=== PATIENT | female | born 1945 | race Two or more races ===

== ENCOUNTER 2021-11-22 12:54 | Inpatient (IN) | payer BC, OTHER ==
[~2021-11-22] VITALS: Ht 157.5 cm; Wt 75.4 kg
[2021-11-22 13:45] LABS: Urine WBC None Seen /hpf (0 - 5)
[2021-11-22 13:52] LABS: Basophils # (auto) 0 10 ^3/uL (0-0.2); Basophils % (auto) 0.4 % (0.0-2.0); Eosinophils # (auto) 0 10 ^3/uL (0-0.8); Eosinophils % (auto) 0.2 % (0.0-7.0); Hematocrit 43.6 % (36.0-46.0); Hemoglobin 14.7 g/dL (12.2-16.2); Lymphocytes # (auto) 0.9 10 ^3/uL (0.4-5.4); Lymphocytes % (auto) 9.8 % (10.0-50.0); Mean Corpuscular Hemoglobin 28.8 pg (28.0-32.0); Mean Corpuscular Hgb Conc. 33.6 g/dL (32.0-36.0); Mean Corpuscular Volume 85.8 fL (80.0-100.0); Monocytes # (auto) 0.8 10 ^3/uL (0-1.3); Monocytes % (auto) 8.8 % (0.0-12.0); Neutrophils # (auto) 7.4 10 ^3/uL (1.6-8.6); Neutrophils % (auto) 80.8 % (37.0-80.0); Nucleated Red Blood Cells % 0.3 %; Red Blood Cells 5.08 10^6/uL (4.0-5.20); Red Cell Distribution Width 15.3 % (11.8-14.3); White Blood Cell 9.1 10^3/uL (4.4-10.8)
[2021-11-22 14:01] LABS: Urine Bacteria FEW /hpf (None Seen); Urine Blood 2+ /uL (Negative); Urine Hyaline Cast FEW /lpf (0 - 2); Urine Mucus FEW (None Seen); Urine Specific Gravity 1.011 (1.001-1.035)
[2021-11-22 14:10] LABS: Albumin 3.8 g/dL (3.4-5.0); Calcium 9.1 mg/dL (8.5-10.1); Magnesium 2.5 mg/dL (1.6-2.6); Potassium 4.3 mmol/L (3.5-5.1)
[2021-11-22 14:15] LABS: BUN/Creatinine Ratio 11.8; Bilirubin, Total 1.4 mg/dL (0.2-1.0); Total Protein 6.8 g/dL (6.4-8.2)
[2021-11-22] MEDS ORDERED: FUROSEMIDE 20 MG TAB PO ONE (14:30)
[2021-11-22] MEDS ORDERED: IOHEXOL 350 MG/ML 100ML IJ ONE (15:02)
[2021-11-22] MEDS ORDERED: MORPHINE SULFATE INJECTION 2 MG/ML SYRG IV PRN ×2 (15:30→17:00)
[2021-11-22] MEDS ORDERED: NITROGLYCERIN 0.4 MG SL TAB SL PRN (15:30)
[2021-11-22] MEDS ORDERED: BUMETANIDE 2.5mg/10ml (0.25 mg/ml) INJ IV ONE (15:30)
[2021-11-22] MEDS ORDERED: LORazepam 0.5 MG TAB PO PRN (17:00)
[2021-11-22] MEDS ORDERED: FAMOTIDINE (10MG/ML) 2ML VL IV ONE (17:00)
[2021-11-22] MEDS ORDERED: IPRATROPIUM BROM 0.5 MG/2.5ML INH SOL NEB ONE (17:00)
[2021-11-22] MEDS ORDERED: LACTULOSE 20Gm/30ML SOLN PO PRN (17:00)
[2021-11-22] MEDS ORDERED: hydrALAZINE HCL 20 MG/ML VL IV PRN (17:00)
[2021-11-22] MEDS ORDERED: ONDANSETRON HCL 4 MG/2 ML VIAL IV PRN (17:00)
[2021-11-22] MEDS ORDERED: HYDROcodone-ACET 5/325MG TAB PO ONE (17:00)
[2021-11-22] MEDS ORDERED: DOCUSATE SOD 100 MG CAP PO PRN (17:00)
[2021-11-22] MEDS ORDERED: METOPROLOL SUCCINATE XL 50 MG TAB PO ONE (17:00)
[2021-11-22] MEDS ORDERED: BENAZEPRIL HCL 10 MG TAB PO ONE (17:00)
[2021-11-22] MEDS ORDERED: HYDROcodone-ACET 5/325MG TAB PO PRN ×2 (17:00)
[2021-11-22 17:14] LABS: INR 1.14 (0.9-1.15); Partial Thromboplastin Time 25.7 sec (23.6-33.0)
[2021-11-22] MEDS ORDERED: LIDOCAINE 1% (LOCAL ANESTH.) PF 5ml SDV ID PRN (20:00)
[2021-11-22] MEDS ORDERED: IPRATROPIUM BROM 0.5 MG/2.5ML INH SOL NEB SCH (21:00)
[2021-11-22] MEDS: ATORVASTATIN 20 MG TAB PO SCH (22:02)
[2021-11-23] MEDS ORDERED: IPRATROPIUM BROM 0.5 MG/2.5ML INH SOL NEB PRN
[2021-11-23] MEDS: BUMETANIDE 2.5mg/10ml (0.25 mg/ml) INJ IV SCH ×3 (00:07→18:33)
[2021-11-23] MEDS: SODIUM CHLOR 0.9% PF (SALINE LOCK) 10ML VIAL/SYR IV SCH ×3 (00:08→21:36)
[2021-11-23 02:51] VITALS: BP 151/90
[2021-11-23 08:41] LABS: Alcohol, Urine < 3.0 mg/dL (0-10); Amphetamine Screen, Urine NEGATIVE (NEGATIVE); Barbiturate Scree,Urine NEGATIVE (NEGATIVE); Benzodiazephine Screen, Urine NEGATIVE (NEGATIVE); Cannabinoid Screen, Urine NEGATIVE (NEGATIVE); Cocaine Screen, Urine NEGATIVE (NEGATIVE); Opiate Scree,Urine NEGATIVE (NEGATIVE); Phencyclidine Screen, Urine NEGATIVE (NEGATIVE)
[2021-11-23 08:45] LABS: Basophils # (auto) 0.1 10 ^3/uL (0-0.2); Basophils % (auto) 0.7 % (0.0-2.0); Eosinophils # (auto) 0 10 ^3/uL (0-0.8); Eosinophils % (auto) 0.2 % (0.0-7.0); Hematocrit 42.4 % (36.0-46.0); Hemoglobin 14.2 g/dL (12.2-16.2); Lymphocytes # (auto) 0.7 10 ^3/uL (0.4-5.4); Lymphocytes % (auto) 8.9 % (10.0-50.0); Mean Corpuscular Hemoglobin 28.5 pg (28.0-32.0); Mean Corpuscular Hgb Conc. 33.4 g/dL (32.0-36.0); Mean Corpuscular Volume 85.5 fL (80.0-100.0); Monocytes # (auto) 0.7 10 ^3/uL (0-1.3); Monocytes % (auto) 9.1 % (0.0-12.0); Neutrophils # (auto) 6.1 10 ^3/uL (1.6-8.6); Neutrophils % (auto) 81.1 % (37.0-80.0); Red Blood Cells 4.96 10^6/uL (4.0-5.20); Red Cell Distribution Width 15.1 % (11.8-14.3); White Blood Cell 7.5 10^3/uL (4.4-10.8)
[2021-11-23 09:14] LABS: INR 1.24 (0.9-1.15); Partial Thromboplastin Time 28.8 sec (23.6-33.0)
[2021-11-23] MEDS ORDERED: FAMOTIDINE (10MG/ML) 2ML VL IV SCH (10:00)
[2021-11-23] MEDS ORDERED: BENAZEPRIL HCL 10 MG TAB PO SCH (10:00)
[2021-11-23] MEDS: METOPROLOL SUCCINATE XL 50 MG TAB PO SCH (10:06)
[2021-11-23] MEDS: ASPirin 81 mg TAB PO SCH (10:06)
[2021-11-23] MEDS: levoFLOXacin 500MG 100 ML IV SCH (10:06)
[2021-11-23] MEDS: ENOXAPARIN SOD 40 MG/0.4 ML SYRINGE SC SCH (10:07)
[2021-11-23 11:25] LABS: Albumin 3.5 g/dL (3.4-5.0); Bilirubin, Total 1.8 mg/dL (0.2-1.0); Phosphorus 3.6 mg/dL (2.5-4.90); Potassium 3.6 mmol/L (3.5-5.1); Total Protein 6.6 g/dL (6.4-8.2); Uric Acid 8.5 mg/dL (2.6-6.0)
[2021-11-23 17:00] VITALS: BP 141/77
[2021-11-23] MEDS: ATORVASTATIN 20 MG TAB PO SCH (21:36)
[2021-11-23] MEDS: POTASSIUM CHL 20 Meq TABLET PO SCH (21:36)
[2021-11-23 22:00] VITALS: BP 145/79
[2021-11-24 05:00] VITALS: BP 136/75
[2021-11-24 06:05] LABS: Potassium 3.8 mmol/L (3.5-5.1)
[2021-11-24 06:12] LABS: BUN/Creatinine Ratio 13.7; Calcium 8.7 mg/dL (8.5-10.1)
[2021-11-24] MEDS: BUMETANIDE 2.5mg/10ml (0.25 mg/ml) INJ IV SCH (06:19)
[2021-11-24 09:00] VITALS: BP 154/85
[2021-11-24] MEDS: levoFLOXacin 500MG 100 ML IV SCH (09:22)
[2021-11-24] MEDS: POTASSIUM CHL 20 Meq TABLET PO SCH ×2 (09:23→21:29)
[2021-11-24] MEDS: ASPirin 81 mg TAB PO SCH (09:24)
[2021-11-24] MEDS: ENOXAPARIN SOD 40 MG/0.4 ML SYRINGE SC SCH (09:32)
[2021-11-24] MEDS: SODIUM CHLOR 0.9% PF (SALINE LOCK) 10ML VIAL/SYR IV SCH ×2 (09:44→21:28)
[2021-11-24] MEDS: METOPROLOL SUCCINATE XL 50 MG TAB PO SCH (09:45)
[2021-11-24] MEDS ORDERED: SACU1TAB PO (12:54)
[2021-11-24] MEDS ORDERED: ATOR20TA50 PO (12:54)
[2021-11-24] MEDS ORDERED: ASPI1CHW15 PO (12:54)
[2021-11-24] MEDS ORDERED: POTA8TAB15 PO (12:54)
[2021-11-24] MEDS ORDERED: METO-6 PO (12:54)
[2021-11-24] MEDS ORDERED: BUME2TAB5 PO (12:54)
[2021-11-24 13:00] VITALS: BP 97/62
[2021-11-24 17:00] VITALS: BP 125/72
[2021-11-24] MEDS: BUMETANIDE 1mg/4ml VIAL (0.25mg/ml) IV SCH (18:34)
[2021-11-24] MEDS ORDERED: TEMAZEPAM 15 MG CAP PO ONE (21:15)
[2021-11-24] MEDS: ATORVASTATIN 20 MG TAB PO SCH (21:30)
[2021-11-24 22:00] VITALS: BP 129/88
[2021-11-25] VITALS (15 sets, daily range): BP systolic 110–138; BP diastolic 62–88
[2021-11-25] MEDS: BUMETANIDE 1mg/4ml VIAL (0.25mg/ml) IV SCH ×2 (05:30→18:53)
[2021-11-25 06:48] LABS: BUN/Creatinine Ratio 15.7; Calcium 8.8 mg/dL (8.5-10.1); Potassium 3.8 mmol/L (3.5-5.1)
[2021-11-25 06:51] LABS: INR 1.22 (0.9-1.15); Partial Thromboplastin Time 29.1 sec (23.6-33.0)
[2021-11-25] MEDS: ENOXAPARIN SOD 40 MG/0.4 ML SYRINGE SC SCH (10:00)
[2021-11-25] MEDS: POTASSIUM CHL 20 Meq TABLET PO SCH (10:25)
[2021-11-25] MEDS: SODIUM CHLOR 0.9% PF (SALINE LOCK) 10ML VIAL/SYR IV SCH (10:25)
[2021-11-25] MEDS: METOPROLOL SUCCINATE XL 50 MG TAB PO SCH (10:26)
[2021-11-25] MEDS: ASPirin 81 mg TAB PO SCH (10:33)
[2021-11-25] MEDS ORDERED: LIDOCAINE 2%HCL (LOCAL ANESTH.) INJ 20ML MDV ONE (12:09)
[2021-11-25] MEDS ORDERED: ANGIOMAX 250 MG VIAL IV ONE (12:49)
[2021-11-25] MEDS ORDERED: HEPARIN SODIUM (PORCINE) 5000 UNITS/ML 1ML VIAL ONE (12:50)
[2021-11-25] MEDS ORDERED: VERAPAMIL 2.5MG/ML INJ 2ML VIAL IV ONE (12:50)
[2021-11-25] MEDS ORDERED: fentaNYL CITRATE 100 MCG/2 ML VL ONE (12:50)
[2021-11-25] MEDS ORDERED: SODIUM CHL 0.9% 0 ML ONE (12:51)
[2021-11-25] MEDS ORDERED: MIDAZOLAM HCL 2MG/2ML 2ml VIAL (1mg/ml) ONE (12:51)
[2021-11-25] MEDS ORDERED: SACUBITRIL-VALSARTAN 24mg/26mg TAB PO SCH (22:00)
== END 2021-11-25 20:30 | disposition home health service (06) | DRG 286 ==
LOC: ER 12:54 → TELE 15:18 → TELE-WESTW 11-23 15:16
PROVIDERS: ADMIT Hospitalist; ATTEND Hospitalist
PROC: B211YZZ Fluoroscopy of Multiple Coronary Arteries using Other Contrast (ICD-10-PCS; principal; 2021-11-25)
DX: I13.0 Hypertensive heart and chronic kidney disease with heart failure and stage 1 through stage 4 chronic kidney disease, or unspecified chronic kidney disease (principal); I50.41 Acute combined systolic (congestive) and diastolic (congestive) heart failure; N39.0 Urinary tract infection, site not specified; I16.9 Hypertensive crisis, unspecified; J91.8 Pleural effusion in other conditions classified elsewhere; I42.8 Other cardiomyopathies; N18.9 Chronic kidney disease, unspecified; Z20.822 Contact with and (suspected) exposure to COVID-19; E66.01 Morbid (severe) obesity due to excess calories; E78.5 Hyperlipidemia, unspecified; I48.91 Unspecified atrial fibrillation; Z85.3 Personal history of malignant neoplasm of breast; Z90.13 Acquired absence of bilateral breasts and nipples; Z79.899 Other long term (current) drug therapy; Z88.0 Allergy status to penicillin; Z68.30 Body mass index [BMI] 30.0-30.9, adult
CPT/HCPCS: 36415; 36569; 71045; 71046; 71275; 80048; 80053; 80061; 80307; 81001; 82728; 83036; 83735; 83880; 84100; 84443; 84484; 84550; 85025; 85379; 85610; 85730; 87040; 87086; 87426; 93005; 93306; 93458; 93970; 96365; 96375; 97163; 99152; G0378; J1956; J2250; J3490

== ENCOUNTER 2022-01-17 20:01 | Inpatient (IN) | payer BC ==
[~2022-01-17] VITALS: Ht 165.1 cm; Wt 67.5 kg
[~2022-01-17 20:01] MED LIST: ASPI1CHW15 PO; ATOR20TA50 PO; BUME2TAB5 PO; METO-6 PO; POTA8TAB15 PO; SACU1TAB PO
[2022-01-17 21:00] LABS: Basophils # (auto) 0.1 10 ^3/uL (0-0.2); Basophils % (auto) 0.4 % (0.0-2.0); Eosinophils # (auto) 0 10 ^3/uL (0-0.8); Hematocrit 48.9 % (36.0-46.0); Hemoglobin 14.8 g/dL (12.2-16.2); Lymphocytes # (auto) 1.1 10 ^3/uL (0.4-5.4); Lymphocytes % (auto) 7.7 % (10.0-50.0); Mean Corpuscular Hemoglobin 28.1 pg (28.0-32.0); Mean Corpuscular Hgb Conc. 30.3 g/dL (32.0-36.0); Mean Corpuscular Volume 92.7 fL (80.0-100.0); Monocytes # (auto) 0.8 10 ^3/uL (0-1.3); Neutrophils # (auto) 12.1 10 ^3/uL (1.6-8.6); Neutrophils % (auto) 85.9 % (37.0-80.0); Red Blood Cells 5.27 10^6/uL (4.0-5.20); Red Cell Distribution Width 14.8 % (11.8-14.3); White Blood Cell 14.1 10^3/uL (4.4-10.8)
[2022-01-17 21:17] LABS: Albumin 3.5 g/dL (3.4-5.0); Calcium 9.7 mg/dL (8.5-10.1); Magnesium 3.4 mg/dL (1.6-2.6); Potassium 5.3 mmol/L (3.5-5.1)
[2022-01-17 21:34] LABS: BUN/Creatinine Ratio 16.3; Bilirubin, Total 0.8 mg/dL (0.2-1.0); Total Protein 7.6 g/dL (6.4-8.2)
[2022-01-17] MEDS ORDERED: DEXTROSE (50%) 50ML SYRG IV PRN (21:45)
[2022-01-17] MEDS ORDERED: InsuLIN R (HUMAN) 100 UNITS in SODIUM CHL 0.9% 99 ML IV SCH (21:45)
[2022-01-17] MEDS ORDERED: InsuLIN REG 1unit/0.01ml Soln (100units/ml) ONE (22:40)
[2022-01-17] MEDS: ACCU-CHEK COMFORT CURVE STRIP VI SCH (22:59)
[2022-01-17] MEDS ORDERED: ONDANSETRON HCL 4 MG/2 ML VIAL IV PRN (23:30)
[2022-01-17] MEDS ORDERED: DOCUSATE SOD 100 MG CAP PO PRN (23:30)
[2022-01-17] MEDS: SACUBITRIL-VALSARTAN 24mg/26mg TAB PO SCH (23:57)
[2022-01-17] MEDS: ATORVASTATIN 20 MG TAB PO SCH (23:58)
[2022-01-18] VITALS (68 sets, daily range): BP systolic 63–140; BP diastolic 25–90
[2022-01-18] MEDS ORDERED: SODIUM CHLORIDE 0.9% 1,000 ML IV ONE (00:30)
[2022-01-18] MEDS: ACCU-CHEK COMFORT CURVE STRIP VI SCH ×24 (00:34→23:40)
[2022-01-18] MEDS: BUMETANIDE 1 MG TAB PO SCH ×3 (00:40→21:29)
[2022-01-18 01:42] LABS: Urine Bacteria NONE SEEN /hpf (None Seen); Urine Blood Negative /uL (Negative); Urine Budding Yeast OCCASIONAL /hpf (None Seen); Urine Hyaline Cast MOD /lpf (0 - 2); Urine Mucus FEW (None Seen); Urine Specific Gravity 1.017 (1.001-1.035); Urine WBC 1 /hpf (0 - 5)
[2022-01-18 02:44] LABS: BUN/Creatinine Ratio 17.9; Calcium 9.8 mg/dL (8.5-10.1); Potassium 4.7 mmol/L (3.5-5.1)
[2022-01-18] MEDS ORDERED: SODIUM CHLORIDE 0.9% 500 ML IV ONE (03:15)
[2022-01-18] MEDS ORDERED: InsuLIN REG 1unit/0.01ml Soln (100units/ml) IV ONE (03:15)
[2022-01-18] MEDS ORDERED: SODIUM CHLORIDE 0.9% 1,000 ML IV SCH (03:45)
[2022-01-18] MEDS: InsuLIN R (HUMAN) 100 UNITS in SODIUM CHL 0.9% 99 ML IV SCH ×2 (07:00→19:20)
[2022-01-18] MEDS ORDERED: DEXTROSE (50%) 50ML SYRG IV PRN ×2 (07:15→20:00)
[2022-01-18] MEDS ORDERED: InsuLIN R (HUMAN) 100 UNITS in SODIUM CHL 0.9% 99 ML IV SCH (07:15)
[2022-01-18] MEDS ORDERED: ACCU-CHEK COMFORT CURVE STRIP VI SCH (07:30)
[2022-01-18 08:11] LABS: Calcium 9.4 mg/dL (8.5-10.1); Potassium 3.3 mmol/L (3.5-5.1)
[2022-01-18 08:14] LABS: BUN/Creatinine Ratio 18.4
[2022-01-18] MEDS ORDERED: NOREPINEPHRINE 8 MG/250ML KIT 250 ML IV ONE (08:56)
[2022-01-18] MEDS: NOREPINEPHRINE 8 MG/250ML KIT 250 ML IV SCH ×2 (09:00→22:24)
[2022-01-18] MEDS: SACUBITRIL-VALSARTAN 24mg/26mg TAB PO SCH (10:00)
[2022-01-18] MEDS: ASPirin-EC 81 mg tab PO SCH (10:00)
[2022-01-18] MEDS ORDERED: METOPROLOL SUCCINATE XL 50 MG TAB PO SCH (10:00)
[2022-01-18] MEDS: MEROPENEM 500MG IVPB 50 ML IV SCH ×2 (10:48→21:38)
[2022-01-18] MEDS ORDERED: PIPERACILLIN-TAZOB 2.25GM 50 ML IV SCH (12:00)
[2022-01-18] MEDS: POTASSIUM CHL 20MEQ/100ML 100 ML IV SCH ×2 (12:40→18:29)
[2022-01-18] MEDS: SOD CHL 0.45% 1,000 ML IV SCH ×2 (13:38→20:44)
[2022-01-18] MEDS ORDERED: MEROPENEM 1GM IVPB 100 ML IV SCH (14:00)
[2022-01-18] MEDS: D5W 5% 1,000 ML IV SCH ×2 (14:08→21:10)
[2022-01-18 15:30] LABS: Alcohol, Urine < 3.0 mg/dL (0-10); Amphetamine Screen, Urine NEGATIVE (NEGATIVE); Barbiturate Scree,Urine NEGATIVE (NEGATIVE); Benzodiazephine Screen, Urine NEGATIVE (NEGATIVE); Cannabinoid Screen, Urine NEGATIVE (NEGATIVE); Cocaine Screen, Urine NEGATIVE (NEGATIVE); Opiate Scree,Urine NEGATIVE (NEGATIVE); Phencyclidine Screen, Urine NEGATIVE (NEGATIVE)
[2022-01-18 17:03] LABS: BUN/Creatinine Ratio 18.9; Calcium 9.5 mg/dL (8.5-10.1); Potassium 3.6 mmol/L (3.5-5.1)
[2022-01-18 18:54] LABS: Calcium 8.9 mg/dL (8.5-10.1); Potassium 3.8 mmol/L (3.5-5.1)
[2022-01-18] MEDS ORDERED: INSULIN LANTUS (GLARGINE) 1 /0.01ml (100units/ml) SC ONE (20:00)
[2022-01-18] MEDS: InsuLIN REG 1unit/0.01ml Soln (100units/ml) SC SCH ×2 (20:00→23:41)
[2022-01-18] MEDS: ATORVASTATIN 20 MG TAB PO SCH (21:29)
[2022-01-18 22:13] LABS: BUN/Creatinine Ratio 18.4; Calcium 8.9 mg/dL (8.5-10.1); Potassium 3.5 mmol/L (3.5-5.1)
[2022-01-19] VITALS (31 sets, daily range): BP systolic 81–123; BP diastolic 44–76
[2022-01-19] MEDS: ACCU-CHEK COMFORT CURVE STRIP VI SCH ×5 (03:32→21:53)
[2022-01-19] MEDS: InsuLIN REG 1unit/0.01ml Soln (100units/ml) SC SCH ×5 (03:33→21:55)
[2022-01-19 03:50] LABS: Basophils # (auto) 0 10 ^3/uL (0-0.2); Basophils % (auto) 0.3 % (0.0-2.0); Eosinophils # (auto) 0 10 ^3/uL (0-0.8); Eosinophils % (auto) 0.1 % (0.0-7.0); Hematocrit 40.2 % (36.0-46.0); Hemoglobin 13.7 g/dL (12.2-16.2); Lymphocytes # (auto) 1.2 10 ^3/uL (0.4-5.4); Lymphocytes % (auto) 8.6 % (10.0-50.0); Mean Corpuscular Hemoglobin 27.5 pg (28.0-32.0); Mean Corpuscular Hgb Conc. 34.1 g/dL (32.0-36.0); Mean Corpuscular Volume 80.5 fL (80.0-100.0); Monocytes # (auto) 0.9 10 ^3/uL (0-1.3); Monocytes % (auto) 5.9 % (0.0-12.0); Neutrophils # (auto) 12.3 10 ^3/uL (1.6-8.6); Neutrophils % (auto) 85.1 % (37.0-80.0); Nucleated Red Blood Cells % 0.1 %; Red Cell Distribution Width 14.1 % (11.8-14.3); White Blood Cell 14.5 10^3/uL (4.4-10.8)
[2022-01-19 04:10] LABS: BUN/Creatinine Ratio 21.2; Calcium 8.8 mg/dL (8.5-10.1); Potassium 3.6 mmol/L (3.5-5.1)
[2022-01-19] MEDS: D5W 5% 1,000 ML IV SCH (05:53)
[2022-01-19 06:13] LABS: BUN/Creatinine Ratio 20.4; Calcium 8.8 mg/dL (8.5-10.1); Potassium 3.3 mmol/L (3.5-5.1)
[2022-01-19] MEDS: SOD CHL 0.45% 1,000 ML IV SCH ×2 (07:45→14:50)
[2022-01-19] MEDS: MEROPENEM 500MG IVPB 50 ML IV SCH ×2 (09:20→21:47)
[2022-01-19] MEDS: BUMETANIDE 1 MG TAB PO SCH (09:20)
[2022-01-19] MEDS: ASPirin-EC 81 mg tab PO SCH (09:20)
[2022-01-19] MEDS ORDERED: POTASSIUM CHL 20 Meq TABLET PO ONE (11:00)
[2022-01-19] MEDS ORDERED: ACETAMINOPHEN 325 MG TAB PO PRN (11:00)
[2022-01-19] MEDS ORDERED: POTASSIUM CHL 20MEQ/100ML 100 ML IV ONE (11:00)
[2022-01-19 15:16] LABS: BUN/Creatinine Ratio 20.5; Calcium 7.8 mg/dL (8.5-10.1); Potassium 4.1 mmol/L (3.5-5.1)
[2022-01-19] MEDS: ATORVASTATIN 20 MG TAB PO SCH (21:31)
[2022-01-19] MEDS: POTASSIUM CHL 20 Meq TABLET PO SCH (21:31)
[2022-01-19] MEDS: INSULIN LANTUS (GLARGINE) 1 /0.01ml (100units/ml) SC SCH (21:54)
[2022-01-20] VITALS (24 sets, daily range): BP systolic 87–127; BP diastolic 48–79
[2022-01-20] MEDS: SOD CHL 0.45% 1,000 ML IV SCH ×3 (02:04→23:45)
[2022-01-20 04:09] LABS: Basophils # (auto) 0 10 ^3/uL (0-0.2); Basophils % (auto) 0.3 % (0.0-2.0); Eosinophils # (auto) 0 10 ^3/uL (0-0.8); Eosinophils % (auto) 0.3 % (0.0-7.0); Hematocrit 36.6 % (36.0-46.0); Hemoglobin 12.6 g/dL (12.2-16.2); Lymphocytes # (auto) 1.1 10 ^3/uL (0.4-5.4); Lymphocytes % (auto) 12.8 % (10.0-50.0); Mean Corpuscular Hemoglobin 27.9 pg (28.0-32.0); Mean Corpuscular Hgb Conc. 34.5 g/dL (32.0-36.0); Mean Corpuscular Volume 80.9 fL (80.0-100.0); Monocytes # (auto) 0.6 10 ^3/uL (0-1.3); Neutrophils # (auto) 6.9 10 ^3/uL (1.6-8.6); Neutrophils % (auto) 79.6 % (37.0-80.0); Nucleated Red Blood Cells % 0.2 %; Red Blood Cells 4.53 10^6/uL (4.0-5.20); Red Cell Distribution Width 14.2 % (11.8-14.3); White Blood Cell 8.7 10^3/uL (4.4-10.8)
[2022-01-20 04:48] LABS: BUN/Creatinine Ratio 27.2; Calcium 8.4 mg/dL (8.5-10.1)
[2022-01-20] MEDS: InsuLIN REG 1unit/0.01ml Soln (100units/ml) SC SCH ×4 (06:33→22:00)
[2022-01-20] MEDS: ACCU-CHEK COMFORT CURVE STRIP VI SCH ×4 (06:33→22:00)
[2022-01-20] MEDS: NOREPINEPHRINE 8 MG/250ML KIT 250 ML IV SCH (09:00)
[2022-01-20] MEDS: POTASSIUM CHL 20 Meq TABLET PO SCH ×2 (10:16→22:26)
[2022-01-20] MEDS: ASPirin-EC 81 mg tab PO SCH (10:16)
[2022-01-20] MEDS: MEROPENEM 500MG IVPB 50 ML IV SCH ×2 (10:16→22:27)
[2022-01-20] MEDS: ATORVASTATIN 20 MG TAB PO SCH (22:26)
[2022-01-20] MEDS: INSULIN LANTUS (GLARGINE) 1 /0.01ml (100units/ml) SC SCH (22:28)
[2022-01-21] VITALS (17 sets, daily range): BP systolic 81–105; BP diastolic 45–65
[2022-01-21 04:34] LABS: Basophils # (auto) 0 10 ^3/uL (0-0.2); Basophils % (auto) 0.1 % (0.0-2.0); Eosinophils # (auto) 0 10 ^3/uL (0-0.8); Eosinophils % (auto) 0.3 % (0.0-7.0); Hematocrit 34.7 % (36.0-46.0); Hemoglobin 11.8 g/dL (12.2-16.2); Lymphocytes # (auto) 1.1 10 ^3/uL (0.4-5.4); Mean Corpuscular Hemoglobin 28.1 pg (28.0-32.0); Mean Corpuscular Hgb Conc. 33.9 g/dL (32.0-36.0); Mean Corpuscular Volume 82.8 fL (80.0-100.0); Monocytes # (auto) 0.5 10 ^3/uL (0-1.3); Monocytes % (auto) 6.6 % (0.0-12.0); Neutrophils # (auto) 5.8 10 ^3/uL (1.6-8.6); Nucleated Red Blood Cells % 0.1 %; Red Blood Cells 4.19 10^6/uL (4.0-5.20); Red Cell Distribution Width 14.3 % (11.8-14.3); White Blood Cell 7.4 10^3/uL (4.4-10.8)
[2022-01-21 04:43] LABS: Calcium 7.8 mg/dL (8.5-10.1); Potassium 4.1 mmol/L (3.5-5.1)
[2022-01-21 04:47] LABS: BUN/Creatinine Ratio 23.8
[2022-01-21] MEDS: InsuLIN REG 1unit/0.01ml Soln (100units/ml) SC SCH ×4 (06:57→22:38)
[2022-01-21] MEDS: ACCU-CHEK COMFORT CURVE STRIP VI SCH ×4 (06:58→22:00)
[2022-01-21] MEDS: MEROPENEM 500MG IVPB 50 ML IV SCH (09:31)
[2022-01-21] MEDS: POTASSIUM CHL 20 Meq TABLET PO SCH ×2 (09:31→22:37)
[2022-01-21] MEDS: ASPirin-EC 81 mg tab PO SCH (09:31)
[2022-01-21] MEDS: SOD CHL 0.45% 1,000 ML IV SCH (11:26)
[2022-01-21] MEDS: ATORVASTATIN 20 MG TAB PO SCH (22:37)
[2022-01-21] MEDS: INSULIN LANTUS (GLARGINE) 1 /0.01ml (100units/ml) SC SCH (22:38)
[2022-01-22] VITALS (25 sets, daily range): BP systolic 89–129; BP diastolic 52–84
[2022-01-22 04:29] LABS: BUN/Creatinine Ratio 18.6; Calcium 8.1 mg/dL (8.5-10.1)
[2022-01-22] MEDS: InsuLIN REG 1unit/0.01ml Soln (100units/ml) SC SCH ×3 (06:16→17:00)
[2022-01-22] MEDS: ACCU-CHEK COMFORT CURVE STRIP VI SCH ×3 (07:00→17:00)
[2022-01-22] MEDS: POTASSIUM CHL 20 Meq TABLET PO SCH (10:00)
[2022-01-22] MEDS: ASPirin-EC 81 mg tab PO SCH (10:00)
[2022-01-22] MEDS ORDERED: LIDOCAINE VISCOUS 2% 15ML UD ONE (12:26)
[2022-01-22] MEDS ORDERED: LIDOCAINE VISCOUS 2% 15ML UD MT ONE (12:30)
[2022-01-22] MEDS ORDERED: MIDAZOLAM HCL 2MG/2ML 2ml VIAL (1mg/ml) ONE (12:33)
[2022-01-22] MEDS ORDERED: fentaNYL CITRATE 100 MCG/2 ML VL ONE (12:33)
[2022-01-22] MEDS ORDERED: MIDAZOLAM HCL 2MG/2ML 2ml VIAL (1mg/ml) IV ONE (13:45)
[2022-01-22] MEDS ORDERED: fentaNYL CITRATE 100 MCG/2 ML VL IV ONE (13:45)
[2022-01-22] MEDS ORDERED: IOHEXOL 350 MG/ML 100ML IJ ONE (15:31)
[2022-01-22] MEDS: MIDODRINE HCL 10 MG TAB PO SCH ×2 (17:00→17:49)
[2022-01-22] MEDS ORDERED: APIXABAN 5 MG TAB PO SCH (22:00)
== END 2022-01-22 21:00 | DRG 637 ==
LOC: EDBD 20:01 → ER 20:04 → OVERFLOW 23:30 → ICU WEST 01-18 05:33
PROVIDERS: ADMIT Internal Medicine; ATTEND Internal Medicine
PROC: 02HV33Z Insertion of Infusion Device into Superior Vena Cava, Percutaneous Approach (ICD-10-PCS; principal; 2022-01-18)
PROC: 4A143B0 Monitoring of Venous Pressure, Central, Percutaneous Approach (ICD-10-PCS; 2022-01-18)
PROC: B24BZZ4 Ultrasonography of Heart with Aorta, Transesophageal (ICD-10-PCS; 2022-01-22)
DX: E11.10 Type 2 diabetes mellitus with ketoacidosis without coma (principal); I63.9 Cerebral infarction, unspecified; G93.41 Metabolic encephalopathy; E87.0 Hyperosmolality and hypernatremia; N17.9 Acute kidney failure, unspecified; I42.8 Other cardiomyopathies; I50.22 Chronic systolic (congestive) heart failure; E86.0 Dehydration; D72.829 Elevated white blood cell count, unspecified; E78.5 Hyperlipidemia, unspecified; I27.20 Pulmonary hypertension, unspecified; Z60.2 Problems related to living alone; I08.1 Rheumatic disorders of both mitral and tricuspid valves; I11.0 Hypertensive heart disease with heart failure; Z90.12 Acquired absence of left breast and nipple; Z91.14 Patient's other noncompliance with medication regimen; Z88.0 Allergy status to penicillin; Z20.822 Contact with and (suspected) exposure to COVID-19
CPT/HCPCS: 36415; 36600; 70450; 70551; 71045; 71275; 80048; 80053; 80307; 81001; 82010; 82570; 82805; 82962; 83036; 83605; 83735; 84484; 85025; 87040; 87081; 87086; 93005; 93306; 93312; 93970; 96365; 96376; 97163; 99291; G0378; J1815; J2185; J2250; J2405; J3480